=== PATIENT | female | born 1950 | race Caucasian/White ===

== ENCOUNTER 2016-11-07 12:36 | Emergency (ER) | payer BC ==
[2016-11-07] MEDS ORDERED: Ketorolac 30 MG/ML SDV IVPUSH ONE (12:51)
[2016-11-07] MEDS ORDERED: Hyoscyamine 0.125 MG Tab.SL SL ONE (12:53)
--- NOTE | 2016-11-07 12:55 | EDM.PDOC ---
ED HPI GI/ABDOMINAL - General Chief Complaint: Abdominal Pain Stated Complaint: SEVERE STOMACH PAINS Time Seen by Provider: 11/07/16 12:43 Source of Information: Reports: Patient History Limitations: Reports: No limitations - History of Present Illness INITIAL COMMENTS - FREE TEXT/NARRATIVE: HISTORY AND PHYSICAL: History of present illness: 66-year-old female with a past medical history of prior cholecystectomy, appendectomy, hysterectomy, now presents emergency department complaining of abdominal pain. Patient has had a several hour history of intermittent severe abdominal pain. Pain is crampy in nature. Patient has nausea but no vomiting. Denies diarrhea. She reports normal bowel and bladder habits. No flank pain patient denies fevers chills sweats or shaking chills. no headache or stiff neck Review of systems: As per history of present illness and below otherwise all systems reviewed and negative. Past medical history: As per history of present illness and as reviewed below otherwise noncontributory. Surgical history: As per history of present illness and as reviewed below otherwise noncontributory. Social history: No reported history of drug or alcohol abuse. Family history: As per history of present illness and as reviewed below otherwise noncontributory. Physical exam: HEENT: Atraumatic, normocephalic, pupils reactive, negative for conjunctival pallor or scleral icterus, mucous membranes moist, throat clear, neck supple, nontender, trachea midline. Lungs: Clear to auscultation, breath sounds equal bilaterally, chest nontender. Heart: S1S2, regular, negative for clicks, rubs, or JVD. Abdomen: Soft, nondistended, mild diffuse tenderness lower abdomen no guarding or rebound, normal bowel sounds. Negative for masses or hepatosplenomegaly. Negative for costovertebral tenderness. Pelvis:nontender. Genitourinary: Deferred. Rectal: Deferred. Extremities: Atraumatic, negative for cords or calf pain. Neurovascular unremarkable. Neuro: Awake, alert, oriented. Cranial nerves grossly unremarkable. Cerebellum unremarkable. Motor and sensory unremarkable throughout. Exam nonfocal. Diagnostics: [Labs and CT abdomen and pelvis pending] Therapeutics: [Patient given IV fluids anti-inflammatory medication IV as well as sublingual Levsin] Impression: [] Plan: [Signs and symptoms consistent with suspected enteritis versus constipation with crampy abdominal pain. Patient is hemodynamically stable with unremarkable vital signs and no clinical fever. Prior history of appendectomy. Labs and CT pending. CT is constipation an incidental finding of diverticulosis. No infectious or inflammatory changes. Patient well-appearing on reevaluation comfortable and stable the pain resolved with Levsin. Discussed with patient to use mineral oil and MiraLax for constipation and Levsin for cramping pain as needed. She will follow up with primary care tomorrow and return immediately for new severe or worsening symptoms. Patient agrees with outpatient followup no further workup or treatment indicated at this time. Strict return precautions given Definitive disposition and diagnosis as appropriate pending reevaluation and review of above. - Related Data Allergies/ADRs: Allergies Allergy/AdvReac Type Severity Reaction Status Date / Time No Known Allergies Allergy Verified 10/19/14 14:02 Home Meds: Home Meds Celecoxib [CeleBREX] 100 mg PO DAILY 10/19/14 [History] LORazepam [Ativan] 1 mg PO QPM 10/19/14 [History] Lisinopril 5 mg PO DAILY 10/19/14 [History] Loratadine [Claritin] 10 mg PO DAILY 10/19/14 [History] Sertraline HCl [Zoloft] 100 mg PO BID 10/19/14 [History] Mineral Oil 30 ml PO DAILY #180 ml 11/07/16 [Rx] Social & Family History - Tobacco Use Smoking Status *Q: Never Smoker Second Hand Smoke Exposure: No - Recreational Drug Use Recreational Drug Use: No ED ROS GENERAL - Review of Systems Review Of Systems: See Below (For history of present illness) ED EXAM, GI/ABD - Physical Exam Exam: See Below (Per history of present illness) Course - Vital Signs Last Recorded V/S: Last Vital Signs Temp 36.6 C 11/07/16 12:46 Pulse 90 11/07/16 12:46 Resp 16 11/07/16 12:46 BP 149/77 H 11/07/16 12:46 Pulse Ox 98 11/07/16 12:46 - Orders/Labs/Meds Orders: Active Orders 24 hr Category Date Time Status Abdomen Pelvis w Cont [CT] Stat Exams 11/07/16 12:53 Taken Labs: Laboratory Tests 11/07/16 11/07/16 11/07/16 Range/Units 12:58 12:58 14:30 WBC 7.95 (4.0-11.0) K/uL RBC 3.72 L (4.30-5.90) M/uL Hgb 9.9 L (12.0-16.0) g/dL Hct 32.2 L (36.0-46.0) % MCV 86.6 (80.0-98.0) fL MCH 26.6 L (27.0-32.0) pg MCHC 30.7 L (31.0-37.0) g/dL RDW Std Deviation 51.9 (28.0-62.0) fl RDW Coeff of Cristine 17 H (11.0-15.0) % Plt Count 342 (150-400) K/uL MPV 9.10 (7.40-12.00) fL Neut % (Auto) 78.3 (48.0-80.0) % Lymph % (Auto) 13.1 L (16.0-40.0) % [place] % (Auto) 5.3 (0.0-15.0) % Eos % (Auto) 2.8 (0.0-7.0) % Baso % (Auto) 0.5 (0.0-1.5) % Neut # (Auto) 6.2 H (1.4-5.7) K/uL Lymph # (Auto) 1.0 (0.6-2.4) K/uL [place] # (Auto) 0.4 (0.0-0.8) K/uL Eos # (Auto) 0.2 (0.0-0.7) K/uL Baso # (Auto) 0.0 (0.0-0.1) K/uL Nucleated RBC % 0.0 /100WBC Nucleated RBCs # 0 K/uL Sodium 141 (136-146) mmol/L Potassium 4.5 (3.5-5.1) mmol/L Chloride 107 (98-110) mmol/L Carbon Dioxide 25 (21-31) mmol/L BUN 21 (6.0-23.0) mg/dL Creatinine 0.8 (0.6-1.5) mg/dL Est Cr Clr Drug Dosing TNP Estimated GFR (MDRD) > 60.0 ml/min Glucose 139 H (60-110) mg/dL Calcium 9.2 (8.8-10.8) mg/dL Total Bilirubin 0.2 (0.1-1.5) mg/dL AST 15 (5-40) IU/L ALT 11 (8-54) IU/L Alkaline Phosphatase 191 H (40-150) Total Protein 6.7 (6.0-8.0) g/dL Albumin 4.0 (3.4-4.8) g/dL Globulin 2.7 (2.0-3.5) g/dL Albumin/Globulin Ratio 1.5 (1.3-2.8) Lipase 47 (7-80) U/L Urine Color YELLOW Urine Appearance CLEAR Urine pH 7.0 (5.0-8.0) Ur Specific [place] <= 1.005 (1.001-1.035) Urine Protein NEGATIVE (NEGATIVE) mg/dL Urine Glucose (UA) NEGATIVE (NEGATIVE) mg/dL Urine Ketones NEGATIVE (NEGATIVE) mg/dL Urine Occult Blood NEGATIVE (NEGATIVE) Urine Nitrite NEGATIVE (NEGATIVE) Urine Bilirubin NEGATIVE (NEGATIVE) Urine Urobilinogen 0.2 (<2.0) EU/dL Ur Leukocyte Esterase NEGATIVE (NEGATIVE) Urine RBC 0-1 (0-2/HPF) Urine WBC 0-1 (0-5/HPF) Ur Epithelial Cells FEW (NONE-FEW) Urine Bacteria RARE (NEGATIVE) Meds: Medications Discontinued Medications Generic Name Dose Route Start Last Admin Trade Name Monty PRN Reason Stop Dose Admin Hyoscyamine 0.125 mg 11/07/16 12:53 11/07/16 14:02 Hyomax-Sl SL 11/07/16 12:54 0.125 mg ONETIME ONE Administration Sodium Chloride 1,000 mls @ 999 mls/hr 11/07/16 13:00 11/07/16 13:50 Normal Saline IV 999 mls/hr ASDIRECTED CINDY Administration Iopamidol 100 ml 11/07/16 13:03 11/07/16 16:10 [id number] (76%) IVPUSH 11/07/16 13:04 100 ml ONETIME STA Administration Ketorolac Tromethamine 30 mg 11/07/16 12:51 11/07/16 14:09 Toradol IVPUSH 11/07/16 12:52 30 mg ONETIME ONE Administration Departure - Departure Time of Disposition: 14:42 Disposition: Home, Self-Care 01 Condition: good Clinical Impression: Constipation, Abdominal pain, Anemia, Diverticulosis Prescriptions: Mineral Oil 30 ml PO DAILY #180 ml Instructions: Constipation, Adult, [id number], Abdominal Pain, Adult, Easy-to -Read Referrals: Thea Lilly SENIOR ENGINEER [Primary Care Provider] - Forms: ED Department Discharge Additional Instructions: It appears that your crampy abdominal pain is being caused by constipation today. Your CAT scan otherwise showed no acute condition. You do have an incidental finding of diverticulosis. You also have an incidental finding of anemia with your hemoglobin at 9.9. Followup with your tomorrow for reevaluation and to discuss these findings and arrange further workup of your anemia and treatment as needed. Use Levsin as needed for crampy abdominal pain and take mineral oil and MiraLax as discussed - My Orders Last 24 Hours: My Active Orders 11/07/16 12:53 Abdomen Pelvis w Cont [CT] Stat - Assessment/Plan Last 24 Hours: My Active Orders 11/07/16 12:53 Abdomen Pelvis w Cont [CT] Stat
[2016-11-07] MEDS ORDERED: Sodium Chloride 0.9% 1,000 ML IV SCH (13:00)
[2016-11-07] MEDS ORDERED: Iopamidol 755 Mg/ML 100 ML Bottle IVPUSH STA (13:03)
[2016-11-07 13:28] LABS: CHLORIDE,CL 107 mmol/L (98-110); SODIUM,NA 141 mmol/L (136-146)
[2016-11-07 13:46] VITALS: BP 149/77
--- NOTE | 2016-11-09 17:42 | CT ---
EXAM DATE: 11/07/16 PATIENT'S AGE: 66 Patient: JULIENNE ELIZALDE Facility: [place], [place] Site . Site : 1950 Study: CT Abdomen/Pelvis [id number] 2:00:57 PM Ordering Physician: Doctor Salazar Final Report: Abdominal pain postop spine fusion. Technique : Contrast-enhanced CT abdomen pelvis with coronal and sagittal images obtained. Comparison : No comparison studies are available. Findings : Normal heart size. No pericardial effusion or pleural effusion. The lung bases appear clear multiple small low-density lesions in the liver most likely would represent small cysts. No biliary dilatation. Cholecystectomy change. Pancreas , adrenal glands appear unremarkable. Spleen is unremarkable. Symmetric enhancement of both kidneys. There is bilateral renal cysts with additional too small to characterize low-density lesions probably representing additional cysts. There is no hydronephrosis. Bilateral hip arthroplasties causes streak artifact. The visualized bladder is grossly unremarkable. No abdominal aortic aneurysm. Diverticulosis. Follow appears otherwise unremarkable without obstruction. There is abundant stool within the colon. Large amount of stool within the rectum. Postsurgical fusion of the thoracic and lumbar spine. No hardware fracture. No abnormal paraspinal inflammatory change or fluid collections. Impression: 1. No acute findings in abdomen pelvis. Abundant stool within the colon with large amount of stool within the rectum which could reflect fecal impaction. 2. Postsurgical fusion changes of the thoracic and lumbar spine. No abnormal paraspinal fluid collections . 3. Diverticulosis. Dictated by Rebecca Valdes MD @ Nov 07 2016 2:12PM (Electronic Signature) Report Signed by Proxy and Original Signed Document filed in the Medical Record. [facility]
== END 2016-11-07 14:55 | disposition home or self-care (01) ==
LOC: MW.ED 12:36
DX: K57.90 Diverticulosis of intestine, part unspecified, without perforation or abscess without bleeding (principal); K59.00 Constipation, unspecified; D64.9 Anemia, unspecified; Z79.899 Other long term (current) drug therapy; Z90.49 Acquired absence of other specified parts of digestive tract
CPT/HCPCS: 36415; 74177; 80053; 81001; 83690; 85025; 96361; 96374; 99284; A9270; J1885; J7040; Q9967

== ENCOUNTER 2019-10-06 12:37 | Emergency (ER) | payer MEDICARE, BC ==
--- NOTE | 2019-10-06 14:08 | CR ---
Chest: 2 views of the chest were obtained. Comparison: Prior chest x-ray of 09/17/09. Heart size is normal. Tortuous thoracic aorta is seen. Previous cervical spine surgery is noted. Transpedicle screws and scoliosis rods are noted within the lumbar and lower thoracic spine. Lungs are clear with no acute parenchymal change. Impression: 1. Prior spine surgery. 2. Nothing acute is appreciated on 2 view chest x-ray. Diagnostic code #2 This report was dictated in [place] Standard Time
[2019-10-06] MEDS ORDERED: Sodium Chloride 0.9% 1,000 ML IV ONE (14:28)
--- NOTE | 2019-10-06 14:34 | EDM.PDOC ---
ED HPI GENERAL MEDICAL PROBLEM - General Chief Complaint: Respiratory Problem Stated Complaint: SOB, CHEST COLD Time Seen by Provider: 10/06/19 13:02 Source of Information: Reports: Patient History Limitations: Reports: No Limitations - History of Present Illness INITIAL COMMENTS - FREE TEXT/NARRATIVE: HISTORY AND PHYSICAL: History of present illness: Patient is a 69-year-old female who presents to the emergency room today with complaints of sore throat, ear pain, cough and generally feeling unwell x2 days. Patient is concerned as she does have an appointment scheduled at [facility] on 10/11/2019 lymph node biopsy. Patient has a past medical history of a tumor on her thyroid which was removed and she states it is now in her lymph nodes on the left side of her neck. Patient denies any fever, chills, headache, change in vision, syncope or near syncope. Denies any chest pain, back pain, shortness of breath or cough. Denies any abdominal pain, nausea, vomiting, diarrhea, constipation or dysuria. Has not noted any blood in urine or stool. Patient has been eating and drinking appropriately. Review of systems: As per history of present illness and below otherwise all systems reviewed and negative. Past medical history: As per history of present illness and as reviewed below otherwise noncontributory. Surgical history: As per history of present illness and as reviewed below otherwise noncontributory. Social history: See social history for further information Family history: As per history of present illness and as reviewed below otherwise noncontributory. Physical exam: General: Well-developed and well-nourished 69-year-old female. Alert and oriented. Nontoxic-appearing and in no acute distress. HEENT: Atraumatic, normocephalic, pupils equal and reactive bilaterally, negative for conjunctival pallor or scleral icterus, mucous membranes dry, TMs normal bilaterally, throat clear, neck supple, nontender, trachea midline. No drooling or trismus noted. No meningeal signs. No hot potato voice noted. Lungs: Clear to auscultation, breath sounds equal bilaterally, chest nontender. Dry nonproductive cough noted. Heart: S1S2, regular rate and rhythm without overt murmur Abdomen: Soft, nondistended, nontender. Negative for masses or hepatosplenomegaly. Negative for costovertebral tenderness. Skin: Intact, warm, dry. No lesions or rashes noted. Extremities: Atraumatic, moves all extremities per self without difficulty or deficits, negative for cords or calf pain. Neurovascular unremarkable. Neuro: Awake, alert, oriented. Cranial nerves II through XII unremarkable. Cerebellum unremarkable. Motor and sensory unremarkable throughout. Exam nonfocal. Notes: Strep, influenza and chest x-ray are benign. This information was shared with the patient. Upon preparing her for discharge she is requesting lab work and IV fluids. EKG shows no acute findings. Vital signs are stable. Lab work is unremarkable with slightly low potassium. She does have an appointment in [place] in a few days. Encouraged her to call today to speak with her oncologist regarding today's symptoms and the benign work-up. She states she has not been sleeping as the cough has been keeping her up, will give her a small amount of medication for comfort. Supportive care measures were reviewed and discussed. Voices understanding and is agreeable to plan of care. Denies any further questions or concerns at this time. Diagnostics: Strep, influenza, CBC, CMP, CXR, EKG Therapeutics: IV fluid Prescription: Hugo MARSH (#4oz) Impression: Viral URI with cough Plan: 1. Today's labs, chest x-ray and flu/strep screening were normal. Please use Tylenol and/or Ibuprofen as needed for pain and fever management. 2. Get plenty of Rest. Encourage fluids to prevent dehydration. 3. Please follow up with your primary care provider. Call your oncologist to inform him of your ER visit. A copy of labs and x-ray results are in your discharge packet. 4. Return to the ED as needed as discussed. Definitive disposition and diagnosis as appropriate pending reevaluation and review of above. throat, ears Pain Score (Numeric/FACES): 3 - Related Data Allergies Allergy/AdvReac Type Severity Reaction Status Date / Time No Known Allergies Allergy Verified 10/06/19 12:49 Home Meds: Home Meds Celecoxib [CeleBREX] 100 mg PO DAILY 10/19/14 [History] LORazepam [Ativan] 1 mg PO QPM 10/19/14 [History] Lisinopril 5 mg PO DAILY 10/19/14 [History] Loratadine [Claritin] 10 mg PO DAILY 10/19/14 [History] Sertraline HCl [Zoloft] 100 mg PO BID 10/19/14 [History] Past Medical History HEENT History: Reports: None Cardiovascular History: Reports: Hypertension Respiratory History: Reports: None Gastrointestinal History: Reports: None Genitourinary History: Reports: None 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 Musculoskeletal History: Reports: None Neurological History: Reports: None Psychiatric History: Reports: Depression Endocrine/Metabolic History: Reports: None Hematologic History: Reports: None Immunologic History: Reports: None Oncologic (Cancer) History: Reports: Thyroid 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 Dermatologic History: Reports: None - Infectious Disease History Infectious Disease History: Reports: None - Past Surgical History Head Surgeries/Procedures: Reports: None HEENT Surgical History: Reports: Tonsillectomy Cardiovascular Surgical History: Reports: None Respiratory Surgical History: Reports: None GI Surgical History: Reports: Appendectomy, Cholecystectomy Female Surgical History: Reports: Hysterectomy Musculoskeletal Surgical History: Reports: Hip Replacement Dermatological Surgical History: Reports: None Social & Family History - Family History Family Medical History: Noncontributory - Tobacco Use Smoking Status *Q: Never Smoker - Caffeine Use Caffeine Use: Reports: Soda - Recreational Drug Use Recreational Drug Use: No ED ROS GENERAL - Review of Systems Review Of Systems: Comprehensive ROS is negative, except as noted in HPI. ED EXAM, GENERAL - Physical Exam Exam: See Below (See dictation) Course - Vital Signs Last Recorded V/S: Last Vital Signs Temp 97.5 F 10/06/19 12:46 Pulse 71 10/06/19 14:56 Resp 18 10/06/19 14:56 BP 105/63 10/06/19 14:56 Pulse Ox 94 L 10/06/19 14:56 - Orders/Labs/Meds Orders: Active Orders 24 hr Category Date Time Status EKG Documentation Completion [RC] STAT Care 10/06/19 12:39 Active CULTURE STREP A CONFIRMATION [RM] Stat Lab 10/06/19 13:20 Results STREP SCRN A RAPID W CULT CONF [RM] Stat Lab 10/06/19 13:20 Results Labs: Laboratory Tests 10/06/19 10/06/19 Range/Units 14:53 14:53 WBC 4.63 (4.0-11.0) K/uL RBC 4.24 L (4.30-5.90) M/uL Hgb 11.9 L (12.0-16.0) g/dL Hct 37.9 (36.0-46.0) % MCV 89.4 (80.0-98.0) fL MCH 28.1 (27.0-32.0) pg MCHC 31.4 (31.0-37.0) g/dL RDW Std Deviation 51.8 (28.0-62.0) fl RDW Coeff of Cristine 16 H (11.0-15.0) % Plt Count 220 (150-400) K/uL MPV 9.50 (7.40-12.00) fL Neut % (Auto) 79.7 (48.0-80.0) % Lymph % (Auto) 9.3 L (16.0-40.0) % [place] % (Auto) 9.5 (0.0-15.0) % Eos % (Auto) 1.1 (0.0-7.0) % Baso % (Auto) 0.4 (0.0-1.5) % Neut # (Auto) 3.7 (1.4-5.7) K/uL Lymph # (Auto) 0.4 L (0.6-2.4) K/uL [place] # (Auto) 0.4 (0.0-0.8) K/uL Eos # (Auto) 0.1 (0.0-0.7) K/uL Baso # (Auto) 0.0 (0.0-0.1) K/uL Nucleated RBC % 0.0 /100WBC Nucleated RBCs # 0 K/uL Sodium 142 (136-145) mmol/L Potassium 3.2 L (3.5-5.1) mmol/L Chloride 104 (98-107) mmol/L Carbon Dioxide 28.0 (21.0-32.0) mmol/L BUN 15 (7.0-18.0) mg/dL Creatinine 0.8 (0.6-1.0) mg/dL Est Cr Clr Drug Dosing 58.93 mL/min Estimated GFR (MDRD) > 60.0 ml/min Glucose 106 (74-106) mg/dL Calcium 8.7 (8.5-10.1) mg/dL Total Bilirubin 0.2 (0.2-1.0) mg/dL AST 21 (15-37) IU/L ALT 26 (14-63) IU/L Alkaline Phosphatase 114 (46-116) U/L Total Protein 6.5 (6.4-8.2) g/dL Albumin 3.6 (3.4-5.0) g/dL Globulin 2.9 (2.6-4.0) g/dL Albumin/Globulin Ratio 1.2 (0.9-1.6) Meds: Medications Discontinued Medications Generic Name Dose Route Start Last Admin Trade Name Freq PRN Reason Stop Dose Admin Sodium Chloride 1,000 mls @ 999 mls/hr 10/06/19 14:28 10/06/19 14:54 Normal Saline IV 10/06/19 15:28 999 mls/hr STAT ONE Administration Departure - Departure Time of Disposition: 15:12 Disposition: Home, Self-Care 01 Clinical Impression: Viral URI with cough - Discharge Information Instructions: Viral Respiratory Infection, [id number] Referrals: Thea Lilly BUSINESS CONSULTANT [Primary Care Provider] - Forms: ED Department Discharge Additional Instructions: The following information is given to patients seen in the emergency department who are being discharged to home. This information is to outline your options for follow-up care. We provide all patients seen in our emergency department with a follow-up referral. The need for follow-up, as well as the timing and circumstances, are variable depending upon the specifics of your emergency department visit. If you don't have a primary care physician on staff, we will provide you with a referral. We always advise you to contact your personal physician following an emergency department visit to inform them of the circumstance of the visit and for follow-up with them and/or the need for any referrals to a consulting specialist. The emergency department will also refer you to a specialist when appropriate. This referral assures that you have the opportunity for follow-up care with a specialist. All of these measure are taken in an effort to provide you with optimal care, which includes your follow-up. Under all circumstances we always encourage you to contact your private physician who remains a resource for coordinating your care. When calling for follow-up care, please make the office aware that this follow-up is from your recent emergency room visit. If for any reason you are refused follow-up, please contact the [facility] Emergency Department at and asked to speak to the emergency department charge nurse. [facility] [address] [place] [address] [facility] [address] [place] [address] 1. Today's labs, chest x-ray and flu/strep screening were normal. Please use Tylenol and/or Ibuprofen as needed for pain and fever management. 2. Get plenty of Rest. Encourage fluids to prevent dehydration. 3. Please follow up with your primary care provider. Call your oncologist to inform him of your ER visit. A copy of labs and x-ray results are in your discharge packet. 4. Return to the ED as needed as discussed. Sepsis Event Note - Evaluation Sepsis Screening Result: No Definite Risk - Focused Exam Vital Signs: Vital Signs Temp Pulse Resp BP Pulse Ox 10/06/19 14:56 71 18 105/63 94 L 10/06/19 12:46 97.5 F 90 18 120/71 95 Date Exam was Performed: 10/06/19 Time Exam was Performed: 15:37 - My Orders Last 24 Hours: My Active Orders 10/06/19 12:39 EKG Documentation Completion [RC] STAT 10/06/19 13:20 CULTURE STREP A CONFIRMATION [RM] Stat STREP SCRN A RAPID W CULT CONF [RM] Stat - Assessment/Plan Last 24 Hours: My Active Orders 10/06/19 12:39 EKG Documentation Completion [RC] STAT 10/06/19 13:20 CULTURE STREP A CONFIRMATION [RM] Stat STREP SCRN A RAPID W CULT CONF [RM] Stat
[2019-10-06 14:57] VITALS: BP 105/63; PULSE 71
[2019-10-06 15:24] LABS: BLOOD UREA NITROGEN,BUN 15 mg/dL (7.0-18.0); CHLORIDE,CL 104 mmol/L (98-107); GLUCOSE RANDOM 106 mg/dL (74-106); POTASSIUM,K 3.2 mmol/L (3.5-5.1); SODIUM,NA 142 mmol/L (136-145)
== END 2019-10-06 16:02 | disposition home or self-care (01) ==
LOC: MW.ED 12:37
DX: J06.9 Acute upper respiratory infection, unspecified (principal); Z79.899 Other long term (current) drug therapy
CPT/HCPCS: 36415; 71046; 80053; 85025; 87081; 87804; 87880; 93005; 96360; 99284; J7030

== ENCOUNTER 2021-08-02 12:58 | Emergency (ER) | payer MEDICARE, BC ==
[2021-08-02] MEDS ORDERED: Sodium Chloride 0.9% 1,000 ML IV ONE (14:03)
[2021-08-02] MEDS ORDERED: Ondansetron 4 MG/2 ML SDV IVPUSH ONE (14:03)
[2021-08-02] MEDS ORDERED: Ketorolac 30 MG/ML SDV IVPUSH ONE (14:03)
[2021-08-02 14:55] LABS: BLOOD UREA NITROGEN,BUN 12 mg/dL (7.0-18.0); CHLORIDE,CL 101 mmol/L (98-107); GLUCOSE RANDOM 107 mg/dL (74-106); LIPASE 67 U/L (73-393); POTASSIUM,K 3.9 mmol/L (3.5-5.1); SODIUM,NA 139 mmol/L (136-145)
--- NOTE | 2021-08-02 14:58 | EDM.PDOC ---
ED HPI GENERAL MEDICAL PROBLEM - General Chief Complaint: Gastrointestinal Problem Stated Complaint: PAIN IN KIDNEYS Time Seen by Provider: 08/02/21 13:04 Source of Information: Reports: Patient History Limitations: Reports: No Limitations - History of Present Illness INITIAL COMMENTS - FREE TEXT/NARRATIVE: HISTORY AND PHYSICAL: History of present illness: Patient is a 71 year old female who presents emergency room today with concern of vomiting, diarrhea, and abdominal pain for the past 3 days. Patient states she has been pretty consistently vomiting and diarrhea and feels that she is not able to keep up and is getting dehydrated. Patient states that she has not had any blood in her stool or her emesis. Patient states that she is also having some left-sided/periumbilical abdominal pain which has been improving but is still present. Patient states that she has not been able to take anything for her symptoms due to vomiting. Patient does have a history of hypertension, appendectomy, cholecystectomy, and hysterectomy. She also has a history of thyroid cancer with mets to some cervical lymph nodes. She follows at [facility] for this. Patient states that she is not on chemo or radiation. Patient states she also had a thyroidectomy. Patient denies fever, chills, chest pain, shortness of breath, or cough. Denies headache, neck stiff ness, change in vision, syncope, or near syncope. Denies constipation, or dysuria. Has not noted any blood in urine or stool. Review of systems: As per history of present illness and below otherwise all systems reviewed and negative. Past medical history: As per history of present illness and as reviewed below otherwise noncontributory. Surgical history: As per history of present illness and as reviewed below otherwise noncontributory. Social history: See social history for further information Family history: As per history of present illness and as reviewed below otherwise noncontributory. Physical exam: General: Patient is alert, oriented, and in no acute distress. Patient laying comfortably on exam table. Vitals stable and reviewed by me. HEENT: Atraumatic, normocephalic, pupils equal and reactive bilaterally, negative for conjunctival pallor or scleral icterus, mucous membranes moist, throat clear, neck supple, nontender, trachea midline. No drooling or trismus noted. No meningeal signs. No hot potato voice noted. Lungs: Clear to auscultation, breath sounds equal bilaterally, chest nontender. Heart: S1S2, regular rate and rhythm without overt murmur Abdomen: Soft, nondistended, moderate periumbilical tenderness without guarding. Negative for masses or hepatosplenomegaly. Negative for costovertebral tenderness. Pelvis: Stable nontender. Genitourinary: Deferred. Rectal: Deferred. Skin: Intact, warm, dry. No lesions or rashes noted. Extremities: Atraumatic, negative for cords or calf pain. Neurovascular unremarkable. Neuro: Awake, alert, oriented. Cranial nerves II through XII unremarkable. Cerebellum unremarkable. Motor and sensory unremarkable throughout. Exam nonfocal. Medical Decision Making: She is a 71-year-old female presents emergency room today with concern of nonblo kasia watery diarrhea, vomiting, periumbilical abdominal pain for the past 2 to 3 days. On arrival to the ED, patient is vitally stable and well-appearing on exam. However, she does have moderate periumbilical tenderness on exam without guarding. Will obtain IV access, provide 1 L fluid bolus, obtaining basic lab work and abdominal pelvic CT scan. Also obtain stool studies. CBC does show mildly decreased white blood cell count at 3.55, otherwise mild derangements of CBC are unremarkable. CMP derangements are unremarkable. Lipase within normal limits. Influenza and Covid negative. C. difficile negative. Remainder of stool studies pending. Abdominal pelvic CT scan shows a small amount of fluid within the cecum, distal sigmoid colon, and rectum which could suggest diarrheal illness. No other acute findings in the abdomen or pelvis. Stable cystic lesion in the right retroperitoneum of uncertain etiology. Could represent a duplication cyst. No suspicious features. All incidental findings of imaging today discussed with patient the importance to have this followed up with a primary care provider. Upon reevaluation of patient, she remains vitally stable and comfortable thro ughout stay in ED. Strict return precautions thoroughly discussed with patient. Discussed importance for follow-up with a primary care provider. Voices understanding and is agreeable to plan of care. Denies any further questions or concerns at this time. Diagnostics: CBC, CMP, UA, lipase, abdominal pelvic CT scan with contrast, stool/Shiga, ova and parasite, C. difficile Therapeutics: Normal saline, Zofran, Toradol Prescription: Zofran Impression: Gastroenteritis with diarrhea and vomiting Plan: 1. Take medication as prescribed. Encourage small but frequent sips of fluid to prevent dehydration. 2. Follow-up with your primary care provider as discussed. Return to the ED as needed as discussed. Definitive disposition and diagnosis as appropriate pending reevaluation and review of above. Left Middle Back Pain Score (Numeric/FACES): 3 - Related Data Allergies Allergy/AdvReac Type Severity Reaction Status Date / Time No Known Allergies Allergy Verified 08/02/21 13:33 Home Meds: Home Meds Celecoxib [CeleBREX] 100 mg PO DAILY 10/19/14 [History] LORazepam [Ativan] 1 mg PO QPM 10/19/14 [History] Lisinopril 5 mg PO DAILY 10/19/14 [History] Loratadine [Claritin] 10 mg PO DAILY 10/19/14 [History] Past Medical History HEENT History: Reports: None Cardiovascular History: Reports: Hypertension Respiratory History: Reports: None Gastrointestinal History: Reports: None Genitourinary History: Reports: None IMMIGRATION ATTORNEY History: Reports: None Musculoskeletal History: Reports: None Neurological History: Reports: None Psychiatric History: Reports: Depression Endocrine/Metabolic History: Reports: None Hematologic History: Reports: None Immunologic History: Reports: None Oncologic (Cancer) History: Reports: Thyroid 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 Dermatologic History: Reports: None - Infectious Disease History Infectious Disease History: Reports: Chicken Pox - Past Surgical History Head Surgeries/Procedures: Reports: None HEENT Surgical History: Reports: Tonsillectomy Cardiovascular Surgical History: Reports: None Respiratory Surgical History: Reports: None GI Surgical History: Reports: Appendectomy, Cholecystectomy Female Surgical History: Reports: Hysterectomy Musculoskeletal Surgical History: Reports: Hip Replacement Dermatological Surgical History: Reports: None Social & Family History - Family History Family Medical History: No Pertinent Family History - Tobacco Use Tobacco Use Status *Q: Former Tobacco User Used Tobacco, but Quit: Yes Month/Year Tobacco Last Used: 08/1983 - Caffeine Use Caffeine Use: Reports: Coffee - Recreational Drug Use Recreational Drug Use: Yes Recreational Drug Type: Reports: Marijuana/Hashish ED ROS GENERAL - Review of Systems Review Of Systems: Comprehensive ROS is negative, except as noted in HPI. ED EXAM, GENERAL - Physical Exam Exam: See Below (see dictation) Course - Vital Signs Last Recorded V/S: Last Vital Signs Temp 98.1 F 08/02/21 16:22 Pulse 84 08/02/21 16:22 Resp 17 08/02/21 16:22 BP 159/90 H 08/02/21 16:22 Pulse Ox 98 08/02/21 16:22 - Orders/Labs/Meds Orders: Active Orders 24 hr Category Date Time Status OVA & PARASITES BY IMMUNOASSAY [MREF] Stat Lab 08/02/21 15:32 Received STOOL CULTURE/SHIGA TOXIN [MREF] Stat Lab 08/02/21 15:32 Received UA RFX KLEBER AND CULT IF INDIC [URIN] Stat Lab 08/02/21 13:51 Ordered Labs: Laboratory Tests 08/02/21 08/02/21 08/02/21 Range/Units 14:28 14:28 14:42 WBC 3.55 L (4.0-11.0) K/uL RBC 4.99 (4.30-5.90) M/uL Hgb 12.4 (12.0-16.0) g/dL Hct 40.0 (36.0-46.0) % MCV 80.2 (80.0-98.0) fL MCH 24.8 L (27.0-32.0) pg MCHC 31.0 (31.0-37.0) g/dL RDW Std Deviation 50.9 (28.0-62.0) fl RDW Coeff of Cristine 17 H (11.0-15.0) % Plt Count 257 (150-400) K/uL MPV 9.40 (7.40-12.00) fL Neut % (Auto) 64.2 (48.0-80.0) % Lymph % (Auto) 20.3 (16.0-40.0) % [place] % (Auto) 14.4 (0.0-15.0) % Eos % (Auto) 0.8 (0.0-7.0) % Baso % (Auto) 0.3 (0.0-1.5) % Neut # (Auto) 2.3 (1.4-5.7) K/uL Lymph # (Auto) 0.7 (0.6-2.4) K/uL [place] # (Auto) 0.5 (0.0-0.8) K/uL Eos # (Auto) 0.0 (0.0-0.7) K/uL Baso # (Auto) 0.0 (0.0-0.1) K/uL Nucleated RBC % 0.0 /100WBC Nucleated RBCs # 0 K/uL Sodium 139 (136-145) mmol/L Potassium 3.9 (3.5-5.1) mmol/L Chloride 101 (98-107) mmol/L Carbon Dioxide 25.0 (21.0-32.0) mmol/L BUN 12 (7.0-18.0) mg/dL Creatinine 0.9 (0.6-1.0) mg/dL Est Cr Clr Drug Dosing 48.80 mL/min Estimated GFR (MDRD) > 60.0 ml/min Glucose 107 H (74-106) mg/dL Calcium 8.7 (8.5-10.1) mg/dL Total Bilirubin 0.2 (0.2-1.0) mg/dL AST 26 (15-37) IU/L ALT 32 (14-63) IU/L Alkaline Phosphatase 101 (46-116) U/L Total Protein 6.9 (6.4-8.2) g/dL Albumin 3.8 (3.4-5.0) g/dL Globulin 3.1 (2.6-4.0) g/dL Albumin/Globulin Ratio 1.2 (0.9-1.6) Lipase 67 L (73-393) U/L Influenza Type A RNA NEGATIVE (NEGATIVE) Influenza Type B RNA NEGATIVE (NEGATIVE) SARS-CoV-2 RNA (GREER) NEGATIVE (NEGATIVE) Meds: Medications Discontinued Medications Generic Name Dose Route Start Last Admin Trade Name Freq PRN Reason Stop Dose Admin Sodium Chloride 1,000 mls @ 999 mls/hr 08/02/21 14:03 08/02/21 14:16 Normal Saline IV 08/02/21 15:03 999 mls/hr BOLUS ONE Administration Ketorolac Tromethamine 30 mg 08/02/21 14:03 08/02/21 14:16 Ketorolac 30 Mg/Ml Sdv IVPUSH 08/02/21 14:04 30 mg ONETIME ONE Administration Ondansetron HCl 4 mg 08/02/21 14:03 08/02/21 14:16 Ondansetron 4 Mg/2 Ml Sdv IVPUSH 08/02/21 14:04 4 mg ONETIME ONE Administration Departure - Departure Time of Disposition: 16:00 Disposition: Home, Self-Care 01 Clinical Impression: Gastroenteritis - Discharge Information Instructions: Diarrhea, Adult, [id number] Referrals: Thea Lilly [employer]IC[employer] K[employer]ITTING MACHINE OPERATOR [Primary Care Provider] - Forms: ED Department Discharge Additional Instructions: The following information is given to patients seen in the emergency department who are being discharged to home. This information is to outline your options for follow-up care. We provide all patients seen in our emergency department with a follow-up referral. The need for follow-up, as well as the timing and circumstances, are variable depending upon the specifics of your emergency department visit. If you don't have a primary care physician on staff, we will provide you with a referral. We always advise you to contact your personal physician following an emergency department visit to inform them of the circumstance of the visit and for follow-up with them and/or the need for any referrals to a consulting specialist. The emergency department will also refer you to a specialist when appropriate. This referral assures that you have the opportunity for follow-up care with a specialist. All of these measure are taken in an effort to provide you with optimal care, which includes your follow-up. Under all circumstances we always encourage you to contact your private physician who remains a resource for coordinating your care. When calling for follow-up care, please make the office aware that this follow-up is from your recent emergency room visit. If for any reason you are refused follow-up, please contact the [facility] Emergency Department at and asked to speak to the emergency department charge nurse. [facility] [address] [place] [id number] [address] [address] 1. Take medication as prescribed. Encourage small but frequent sips of fluid to prevent dehydration. 2. Follow-up with your primary care provider as discussed. Return to the ED as needed as discussed. Sepsis Event Note (ED) - Evaluation Sepsis Screening Result: No Definite Risk - Focused Exam Vital Signs: Vital Signs Temp Pulse Resp BP Pulse Ox 08/02/21 16:22 98.1 F 84 17 159/90 H 98 08/02/21 15:48 86 159/79 H 98 08/02/21 15:35 95 159/79 H 95 08/02/21 14:40 71 16 139/74 98 08/02/21 13:37 97.8 F 83 18 147/72 H 96 - My Orders Last 24 Hours: My Active Orders 08/02/21 13:51 UA RFX KLEBER AND CULT IF INDIC [URIN] Stat 08/02/21 15:32 OVA & PARASITES BY IMMUNOASSAY [MREF] Stat STOOL CULTURE/SHIGA TOXIN [MREF] Stat - Assessment/Plan Last 24 Hours: My Active Orders 08/02/21 13:51 UA RFX KLEBER AND CULT IF INDIC [URIN] Stat 08/02/21 15:32 OVA & PARASITES BY IMMUNOASSAY [MREF] Stat STOOL CULTURE/SHIGA TOXIN [MREF] Stat
[2021-08-02 15:32] LABS: CORONAVIRUS COVID-19 NAA NEGATIVE (NEGATIVE); INFLUENZA A NAA NEGATIVE (NEGATIVE); INFLUENZA B NAA NEGATIVE (NEGATIVE)
--- NOTE | 2021-08-02 15:57 | CT ---
INDICATION: Periumbilical abdominal pain, vomiting. TECHNIQUE: CT of the abdomen and pelvis with 100 cc Isovue 370 IV contrast. Coronal and sagittal reconstructions. COMPARISON: CT of the abdomen and pelvis 11/06/2020. FINDINGS: Stable small hepatic cysts. Cholecystectomy. Stable intra and extrahepatic bile duct dilation likely related to post cholecystectomy state. The spleen, pancreas, and adrenal glands are negative. Hepatic and portal veins are patent. Symmetric enhancement of the kidneys. Small right renal cyst. Few tiny low-attenuation lesions in both kidneys likely represent cysts. Mild bilateral pelvocaliectasis similar to prior exam. No ureteral dilation. No obstructing urinary calculi identified, however the distal ureters are obscured by streak artifact from bilateral hip arthroplasties. The visualized bladder is normal in appearance. No bowel dilation. Colonic diverticulosis without evidence of diverticulitis. Small amount of fluid within the cecum, distal sigmoid colon, and rectum. The remainder of the colon is decompressed. The appendix is not identified, however there are no secondary signs of inflammation in the right lower quadrant. No intraperitoneal free air or fluid. Mild vascular calcifications. Stable mildly prominent right distal common iliac chain lymph node which is likely reactive. No other lymphadenopathy. Stable cystic lesion in the right retroperitoneum posterior to the cecum measuring 3.2 x 3.9 cm (series 201, image 110). No suspicious features. Degenerative changes of the spine. Posterior instrumented fusion of T11-S1 with screws extending across the sacroiliac joints. The lung bases are clear. IMPRESSION: 1. Small amount of fluid within the cecum, distal sigmoid colon, and rectum could suggest a diarrheal illness. 2. No other acute findings in the abdomen or pelvis. 3. Stable cystic lesion in the right retroperitoneum of uncertain etiology. This could possibly represent a duplication cyst. No suspicious features. Please note that all CT scans at this facility use dose modulation, iterative reconstruction, and/or weight-based dosing when appropriate to reduce radiation dose to as low as reasonably achievable. Dictated by Moon Acevedo MD @ 08/02/2021 3:55:23 PM (Electronically Signed)
[2021-08-02 16:23] VITALS: BP 159/90; PULSE 84
[2021-08-02] MEDS ORDERED: Iopamidol 755 MG/ML 500 ML Multipack Bottle IVPUSH ONE (16:43)
== END 2021-08-02 16:30 | disposition home or self-care (01) ==
LOC: MW.ED 12:58
DX: K52.9 Noninfective gastroenteritis and colitis, unspecified (principal); I10 Essential (primary) hypertension; Z79.899 Other long term (current) drug therapy; Z87.891 Personal history of nicotine dependence
CPT/HCPCS: 0240U; 36415; 74177; 80053; 83690; 85025; 87045; 87046; 87324; 87328; 87329; 87449; 87899; 96374; 96375; 99284; J1885; J2405; J7030; Q9967

== ENCOUNTER 2022-07-17 09:59 | Emergency (ER) | payer MEDICARE, BC ==
[2022-07-17 10:33] VITALS: BP 118/82; PULSE 72
[2022-07-17] MEDS ORDERED: Erythromycin Base 0.5% Ophth Oint 1 GM Tube EYELF ONE (11:23)
== END 2022-07-17 11:35 | disposition home or self-care (01) ==
LOC: MW.ED 09:59
DX: J01.01 Acute recurrent maxillary sinusitis (principal); I10 Essential (primary) hypertension; Z79.899 Other long term (current) drug therapy
CPT/HCPCS: 99283; A9270

== ENCOUNTER 2023-04-29 11:30 | Emergency (ER) | payer MEDICARE, BC ==
[2023-04-29] MEDS ORDERED: Dexamethasone 10 MG/ML SDV IM STA (11:54)
[2023-04-29 13:29] VITALS: BP 137/82; PULSE 78
== END 2023-04-29 12:19 | disposition home or self-care (01) ==
LOC: MW.ED 11:30
DX: L03.116 Cellulitis of left lower limb (principal); I10 Essential (primary) hypertension; Z91.030 Bee allergy status
CPT/HCPCS: 96372; 99283; J1100

== ENCOUNTER 2023-06-09 19:06 | Emergency (ER) | payer MEDICARE, BC ==
[2023-06-09 19:16] VITALS: BP 149/87; PULSE 80
[2023-06-09] MEDS ORDERED: Lidocaine 1% 5 ML VIAL INJECT ONE (19:22)
== END 2023-06-09 21:15 | disposition left against medical advice (07) ==
LOC: MW.ED 19:06
DX: S61.210A Laceration without foreign body of right index finger without damage to nail, initial encounter (principal); I10 Essential (primary) hypertension; Z91.030 Bee allergy status; Z79.899 Other long term (current) drug therapy; W25.XXXA Contact with sharp glass, initial encounter; Y93.G1 Activity, food preparation and clean up
CPT/HCPCS: 12001; 73140-26-F6; 73140-F6; 99283; J3490

== ENCOUNTER 2023-06-19 11:08 | Emergency (ER) | payer MEDICARE, BC ==
[2023-06-19] MEDS ORDERED: Albuterol/Ipratropium 3.0-0.5 MG/3 ML Neb Soln NEB ONE (11:46)
[2023-06-19 12:22] LABS: CORONAVIRUS COVID-19 NAA NEGATIVE (NEGATIVE); INFLUENZA A NAA NEGATIVE (NEGATIVE); INFLUENZA B NAA NEGATIVE (NEGATIVE)
[2023-06-19 12:38] VITALS: BP 129/71; PULSE 83
== END 2023-06-19 12:38 | disposition home or self-care (01) ==
LOC: MW.ED 11:08
DX: J40 Bronchitis, not specified as acute or chronic (principal); I10 Essential (primary) hypertension; Z90.49 Acquired absence of other specified parts of digestive tract; Z90.710 Acquired absence of both cervix and uterus; Z79.899 Other long term (current) drug therapy; Z91.030 Bee allergy status; Z20.822 Contact with and (suspected) exposure to COVID-19
CPT/HCPCS: 0240U; 71045; 94640; 99284; 99283; J7620-GY

== ENCOUNTER 2023-12-28 16:26 | Emergency (ER) | payer MEDICARE, BC ==
[2023-12-28 17:12] VITALS: BP 145/85; PULSE 96
[2023-12-28] MEDS: Lidocaine 1% PF 2 ML SDV INJECT ONE (17:12)
[2023-12-28] MEDS: Diphtheria,Pertussis(Acell),Tetanus Vaccine 0.5 ML Syringe IM ONE (17:13)
== END 2023-12-28 17:57 | disposition home or self-care (01) ==
LOC: MW.ED 16:26
DX: S61.216A Laceration without foreign body of right little finger without damage to nail, initial encounter (principal); I10 Essential (primary) hypertension; Z91.030 Bee allergy status; Z79.899 Other long term (current) drug therapy; Z86.19 Personal history of other infectious and parasitic diseases; Z90.49 Acquired absence of other specified parts of digestive tract; W28.XXXA Contact with powered lawn mower, initial encounter
CPT/HCPCS: 12001; 73130-26-RT; 73130-RT; 99283; J3490

== ENCOUNTER 2024-08-08 07:44 | Day surgery (SDC) | payer MEDICARE, BC ==
[~2024-08-08 07:44] MED LIST: Sodium Chloride 0.9% 10 ML Syringe FLUSH PRN; Sodium Chloride 0.9% 2.5 ML Syringe FLUSH PRN; Sodium Chloride 0.9% 20 ML SDV IV PRN
[2024-08-08] MEDS: Lactated Ringers 1,000 ML IV SCH (08:08)
[2024-08-08] MEDS ORDERED: Propofol 200 MG/20 ML SDV ONE (10:04)
[2024-08-08 12:49] VITALS: BP 143/78; PULSE 70
== END 2024-08-08 11:48 | disposition home or self-care (01) ==
LOC: MW.SDS 07:44
PROVIDERS: ATTEND Surgery
DX: D64.9 Anemia, unspecified (principal); C90.00 Multiple myeloma not having achieved remission; I10 Essential (primary) hypertension; E78.00 Pure hypercholesterolemia, unspecified; F32.A Depression, unspecified; Z87.891 Personal history of nicotine dependence; Z79.899 Other long term (current) drug therapy; Z91.030 Bee allergy status
CPT/HCPCS: 43239; 88305; J2704; J7120; 00731; 99100

== ENCOUNTER 2025-01-03 15:30 | Emergency (ER) | payer MEDICARE, BC ==
[2025-01-03 16:31] VITALS: BP 131/74; PULSE 77
== END 2025-01-03 17:45 | disposition left against medical advice (07) ==
LOC: MW.ED 15:30
DX: Z53.21 Procedure and treatment not carried out due to patient leaving prior to being seen by health care provider (principal)
CPT/HCPCS: 73030-26-LT; 73030-LT